=== PATIENT | male | born 2000 | race Caucasian/White ===

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

== ENCOUNTER 2019-04-01 17:36 | Emergency (ER) | payer MEDICAID ==
[~2019-04-01] VITALS: Ht 180.3 cm; Wt 117.9 kg
[2019-04-01 17:37] VITALS: BP 145/71
--- NOTE | 2019-04-01 17:47 | NUR ---
PT AMB TO BED 6
--- NOTE | 2019-04-01 17:50 | NUR ---
ERMD AT BEDSIDE
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
[2019-04-01] MEDS ORDERED: IBUPROFEN 400 MG TAB PO ONE (18:00)
[2019-04-01 18:15] VITALS: BP 145/71
== END 2019-04-01 18:10 | disposition home or self-care (01) ==
LOC: MED 17:36
DX: S16.1XXA Strain of muscle, fascia and tendon at neck level, initial encounter (principal); V89.2XXA Person injured in unspecified motor-vehicle accident, traffic, initial encounter; Y93.89 Activity, other specified; Y92.89 Other specified places as the place of occurrence of the external cause; Y99.8 Other external cause status
CPT/HCPCS: 99282